=== PATIENT | male | born 2000 | race Hispanic/Latino ===

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

== ENCOUNTER 2018-12-08 16:00 | Inpatient (IN) | payer OTHER, SELFPAY | END 2018-12-12 15:20 | disposition home or self-care (01) | LOC: EDH 16:00 → 2CH 12-09 09:02 → 4BH 12-11 10:45 → EDHIP 16:01 → 3AH 22:49 | DX: A41.9 Sepsis, unspecified organism (principal); J96.01 Acute respiratory failure with hypoxia; J45.901 Unspecified asthma with (acute) exacerbation; J20.9 Acute bronchitis, unspecified; J98.2 Interstitial emphysema ==

== ENCOUNTER 2019-06-11 18:26 | Emergency (ER) | payer OTHER ==
[2019-06-11] MEDS ORDERED: IBUPROFEN 600 MG TABLET ONE (18:53)
[2019-06-11 19:22] LABS: RAPID GROUP A STREP NEGATIVE (NEGATIVE)
[2019-06-11] MEDS ORDERED: ONDANSETRON ODT 4 MG TAB ONE (19:52)
[2019-06-11] MEDS ORDERED: IPRATROPIUM/ALBUTEROL SULFATE 3 ML SOLUTION IH ONE (20:02)
== END 2019-06-11 20:34 | disposition home or self-care (01) ==
LOC: EDH 18:26
DX: J09.X2 Influenza due to identified novel influenza A virus with other respiratory manifestations (principal); J45.909 Unspecified asthma, uncomplicated
CPT/HCPCS: 36415; 71046; 82550; 84484; 87804; 87880; 93005

== ENCOUNTER 2019-07-03 20:54 | Emergency (ER) | payer SELFPAY | END 2019-07-03 21:24 | disposition home or self-care (01) | LOC: EDH 20:54 | DX: R11.10 Vomiting, unspecified (principal); J45.909 Unspecified asthma, uncomplicated; Z98.890 Other specified postprocedural states | CPT/HCPCS: 99281 ==